=== PATIENT | male | born 1975 | race Hispanic/Latino ===

== ENCOUNTER 2024-09-21 00:48 | Emergency (ER) | payer OTHER ==
[2024-09-21 01:11] LABS: #Basophils 0.03 10x3/uL (0.0-0.2); #Eosinophils 0.05 10x3/uL (0.0-0.5); #Monocytes 0.74 10x3/uL (0.0-1.1); #Neutrophils 7.43 10x3/uL (1.5-8.4); %Basophils 0.3 % (0.0-2.0); %Eosinophils 0.5 % (0.0-6.0); %Lymphocytes 12.8 % (18.0-47.0); %Monocytes 7.8 % (0.0-10.0); %Neutrophils 78.3 % (40.0-75.0); Hematocrit 34.1 % (38.8-50.0); Hemoglobin 12.6 g/dL (13.5-17.5); Mean Corpuscular Hemoglobin 32.0 pg (27.0-33.0); Mean Corpuscular Volume 86.5 fL (81.2-95.1); Platelet Count 301 10x3/uL (150-450); Red Blood Cell (RBC) Count 3.94 10x6/uL (4.32-5.72); White Blood Cell (WBC) Count 9.50 10x3/uL (3.5-10.5)
[2024-09-21 01:23] LABS: ALT (SGPT) 13 U/L (Less than 45); AST (SGOT) 12 U/L (11-34); Albumin 3.6 g/dL (3.1-4.5); Alkaline Phosphatase 109 U/L (40-110); Anion Gap 13 mmol/L (10-20); BUN (Urea Nitrogen) 8 mg/dL (8.9-20.6); Bilirubin, Total 0.5 mg/dL (0.3-1.2); Calc. Creatinine Clearance 0 mL/min (70-130); Calcium 7.7 mg/dL (7.8-10.44); Carbon Dioxide 22 mmol/L (22-29); Chloride 88 mmol/L (98-107); Globulin 3.0 g/dL (2.4-3.5); Glucose 92 mg/dL (70-105); Potassium 4.4 mmol/L (3.5-5.1)
[2024-09-21 01:27] LABS: Sodium 119 mmol/L (136-145)
[2024-09-21 01:30] LABS: Troponin I Less than 0.010 ng/mL (< 0.028)
[2024-09-21 01:36] LABS: Lipase Less than 4 U/L (8-78)
[2024-09-21 02:53] LABS: Bacteria/HPF None Seen HPF (None Seen); CAUTI Indications for Culture Pelvic or flank pain; Glucose, Urine (Dipstick) Normal (Negative); Leukocyte Negative (Negative); Protein, Urine (Dipstick) Negative (Neg-Trace); RBC/HPF None Seen HPF (0-3); Specific Gravity, Urine 1.010 (1.005-1.030); WBC/HPF None Seen HPF (0-3)
[2024-09-21 02:54] LABS: Urine Culture Reflex No No
[2024-09-21] MEDS ORDERED: carBAMazepine 200 MG TAB PO SCH (03:30)
[2024-09-21] MEDS ORDERED: Gabapentin 400 MG CAP PO SCH (03:30)
[2024-09-21 13:22] LABS: Osmolality, Urine 241 mOsm/kg (50-1200)
[2024-09-21 13:33] LABS: Osmolality, Serum 243 mOsm/kg (275-295)
[2024-09-21 13:34] LABS: Sodium, Urine 52.0 mmol/L (Not Available)
[2024-09-21] MEDS ORDERED: Iopamidol 300 61% 100 ML VIAL FS ONE (13:39)
== END 2024-09-21 05:10 ==
LOC: CSHERS 00:48 → EEVIPCON 00:48 → CSHERS 05:10
DX: S22.41XD Multiple fractures of ribs, right side, subsequent encounter for fracture with routine healing (principal); E87.1 Hypo-osmolality and hyponatremia; J90 Pleural effusion, not elsewhere classified; E03.9 Hypothyroidism, unspecified; E78.5 Hyperlipidemia, unspecified; I10 Essential (primary) hypertension; W18.30XD Fall on same level, unspecified, subsequent encounter; Z79.899 Other long term (current) drug therapy
CPT/HCPCS: 71260; 74177; 80053; 81001; 82570; 83605; 83690; 83880; 83930; 83935; 84300; 84484; 85025; 93005; 96374; J2270; Q9967